=== PATIENT | female | born 1955 | race Caucasian/White ===

== ENCOUNTER → 2017-02-04 | Outpatient (CLI) | payer BC ==
[~2017-02-04] MED LIST: BACTRIM DS TAB1 EACH PO; BACTROBAN N1 GM/TUBE TOP; CALCIUM 600 +1 EA10 PO; FLONASE 50 MCG/16 GM NOSE; GAVISCON ES TA1 EACH PO; GLUCOSAMINE CH1 EACH PO; HUMIBID LA (MU600 MG PO; HYDROCODON-ACE1 EAC6 PO; LEVOTHROID (S137 MCG PO; LYRICA 75MG CAP75 MG; LYRICA 75MG CAP75 MG PO; LYRICA225 MG PO; NORCO 5-325 TA1 EACH PO; OXYGEN M-15 INH; PERCOCET 5-3251 EACH PO; PREDNISONE10 MG PO; PRESERVISION A1 EAC1 PO; PROTONIX40 MG PO; SELENIUM100 MCG PO; TOPROL XL25 MG PO; TRAMADOL HCL50 MG PO; ULTRAM50 MG PO; VALIUM5 MG PO; VITAMIN C1000 MG PO; ZYRTEC10 MG PO
== END | disposition disaster alternative care site (69) ==
LOC: GPOC 02-01 11:00
PROC: 3E0U33Z Introduction of Anti-inflammatory into Joints, Percutaneous Approach (ICD-10-PCS; principal; 2017-02-04)
PROC: 3E0U3BZ Introduction of Anesthetic Agent into Joints, Percutaneous Approach (ICD-10-PCS; 2017-02-04)
DX: M48.06 Spinal stenosis, lumbar region (principal); M51.16 Intervertebral disc disorders with radiculopathy, lumbar region
CPT/HCPCS: G0259; J1040